=== PATIENT | male | born 1965 | race Caucasian/White ===

== ENCOUNTER 2019-04-09 07:55 | Emergency (ER) | payer SELFPAY ==
[2019-04-09 08:23] LABS: Absolute Lymphocytes (CBC) 0.9 K/uL (0.7-4.9); Absolute Monocytes 0.5 K/uL (0.1-1.3); Absolute Neutrophil 9.8 K/uL (1.8-8.0); Basophils % 0.2 % (0-1.3); Eosinophils % 0.1 % (0-4.4); Lymphocytes % 8.4 % (15.3-44.8); MPV 7.6 fL (7.6-11.3); Monocytes % 4.6 % (3.3-12.3); RBC Red Blood Cell Count 4.35 M/uL (4.33-5.43)
[2019-04-09 08:27] LABS: Protime INR 1.11
[2019-04-09] MEDS ORDERED: NA CHLORIDE 0.9% 1,000 ML ONE (08:29)
[2019-04-09 08:39] LABS: ALT/SGPT 32 U/L (12-78); AST/SGOT 40 U/L (15-37); Albumin 4.3 g/dL (3.4-5.0); Alkaline Phosphatase 85 U/L (45-117); BUN Blood Urea Nitrogen 21 mg/dL (7-18); Bicarbonate 25 mmol/L (21-32); Bilirubin Direct 0.1 mg/dL (0-0.2); Bilirubin Total 0.5 mg/dL (0.2-1.0); Glucose Level 118 mg/dL (74-106); Protein, Total 7.5 g/dL (6.4-8.2); Sodium Level 141 mmol/L (136-145)
[2019-04-09 08:47] LABS: Urine Blood 1+ (NEG); Urine Glucose NEGATIVE (NEG); Urine Protein NEGATIVE (NEG); Urine Specific Gravity 1.015 (1.005-1.030); Urine pH 5.5 (5.0-7.0)
[2019-04-09 08:57] LABS: Barbiturates NEGATIVE (NEGATIVE); Benzodiazepines NEGATIVE (NEGATIVE); Cocaine POSITIVE (NEGATIVE); METHAMPHETAM NEGATIVE (NEGATIVE); Methadone NEGATIVE (NEGATIVE); Opiates NEGATIVE (NEGATIVE); Phencyclidine NEGATIVE (NEGATIVE); THC Cannibis POSITIVE (NEGATIVE)
--- NOTE | 2019-04-09 09:09 | ER ---
Nurse's Notes [facility] Name: Ryan De Los Santos Jr Age: 53 yrs Sex: Male : 1965 Arrival Date: 04/09/2019 Time: 07:56 Bed 16 Private MD: Diagnosis: Abuse of other non-psychoactive substances;Cocaine abuse with cocaine-induced anxiety disorder Presentation: 04/09 07:56 Presenting complaint: EMS states: pt went on a funes last night, uses cocaine per pt sg report, pt stated feeling very anxious and like he may . EMS noted pinpoint pupils, administered Narcan 2 mg IV, pt became more alert per EMS. Transition of care: patient was not received from another setting of care. Onset of symptoms was April 09, 2019. Risk Assessment: Do you want to hurt yourself or someone else? Patient reports no desire to harm self or others. Initial Sepsis Screen: Does the patient meet any 2 criteria? No. Patient's initial sepsis screen is negative. Does the patient have a suspected source of infection? No. Patient's initial sepsis screen is negative. Care prior to arrival: Medication(s) given: zofran 4 mg, Narcan 2 mg IVP IV initiated. 20 GA, in the right antecubital area, Glucose check: 122. 07:56 Acuity: DEANNA 3 sg 07:56 Method Of Arrival: EMS: [facility] sg Historical: - Allergies: 07:59 No Known Allergies; sg - Home Meds: 07:59 Glimepiride Oral [Active]; lisinopril Oral [Active]; Paxil 40 mg Oral tab 1 tab once sg daily for Anxiety with Depression [Active]; - PMHx: 07:59 Anxiety; Hypertension; Diabetes - NIDDM; sg - Immunization history:: Adult Immunizations up to date. - Social history:: Smoking status: Patient/guardian denies using tobacco. - Ebola Screening: : Patient negative for fever greater than or equal to 101.5 degrees Fahrenheit, and additional compatible Ebola Virus Disease symptoms Patient denies exposure to infectious person Patient denies travel to an Ebola-affected area in the 21 days before illness onset No symptoms or risks identified at this time. Screenin:00 Abuse screen: Denies threats or abuse. Denies injuries from another. Nutritional sg screening: No deficits noted. Tuberculosis screening: No symptoms or risk factors identified. Never had TB. Fall Risk None identified. Assessment: 08:00 General: Appears in no apparent distress. well developed, well nourished, Behavior is sg calm, cooperative, appropriate for age. Neuro: Level of Consciousness is awake, alert, obeys commands, Oriented to person, place, time, situation, Speech is normal, Facial symmetry appears normal. Cardiovascular: Heart tones S1 S2 present Chest pain is denied. Respiratory: Airway is patent Respiratory effort is even, unlabored, Respiratory pattern is regular, symmetrical. GI: Abdomen is round non-distended, Parent/caregiver reports the patient having nausea. : No signs and/or symptoms were reported regarding the genitourinary system. EENT: No signs and/or symptoms were reported regarding the EENT system. Derm: Skin is pink, warm \T\ dry. Musculoskeletal: Circulation, motion, and sensation intact. Range of motion: intact in all extremities, Swelling absent. 09:04 Reassessment: Patient appears in no apparent distress at this time. Patient and/or sg family updated on plan of care and expected duration. Pain level reassessed. Patient is alert, oriented x 3, equal unlabored respirations, skin warm/dry/pink. 09:42 Reassessment: Called [facility], will have to wait for Taxi at this time. iw Vital Signs: 08:09 BP 135 / 90; Pulse 91; Resp 18; Temp 98.3; Pulse Ox 98% on R/A; Pain 3/10; sg 09:00 BP 130 / 87; Pulse 79; Resp 17; Pulse Ox 98% on R/A; Pain 3/10; sg ED Course: 07:56 Patient arrived in ED. sg 07:57 Vince Rosales MD is Attending Physician. kdr 07:58 Triage completed. sg 07:58 Tony Davis, RN is Primary Nurse. sg 07:58 Arm band placed on. sg 08:00 Patient has correct armband on for positive identification. Bed in low position. Call sg light in reach. hall monitor on. Pulse ox on. NIBP on. Warm blanket given. Head of bed elevated. 08:07 EKG done, by ED staff, reviewed by Vince Rosales MD. dh3 08:14 Initial lab(s) drawn, by nh, sent to lab. dh3 09:41 No provider procedures requiring assistance completed. IV discontinued, intact, iw bleeding controlled, No redness/swelling at site. Pressure dressing applied. Administered Medications: 08:19 Drug: NS 0.9% 1000 ml Route: IV; Rate: 1 bolus; Site: right antecubital; tr5 09:20 Follow up: Response: No adverse reaction; IV Status: Completed infusion sg Outcome: 09:07 Discharge ordered by . kdr 09:41 Discharged to home ambulatory, with family. iw 09:41 Condition: good 09:41 Discharge instructions given to patient, Instructed on discharge instructions, follow up and referral plans. safety practices, Demonstrated understanding of instructions, follow-up care. 09:44 Patient left the ED. Signatures: Tony Davis RN RN sg Vince Rosales MD MD kdr Williams, Irene RN RN Lindsey Toure [facility] Nato Madsen RN RN tr5 Corrections: (The following items were deleted from the chart) 09:03 08:59 BP 135 / 90; Pulse 79bpm; Resp 17bpm; Pulse Ox 98% RA; Pain 3/10; sg sg
--- NOTE | 2019-04-09 09:09 | EDPHYS ---
Physician Documentation [facility] Name: Ryan De Los Santos Jr Age: 53 yrs Sex: Male : 1965 Arrival Date: 04/09/2019 Time: 07:56 Bed 16 Private MD: ED Physician Vince Rosales HPI: 04/09 08:12 This 53 yrs old Male presents to ER via EMS with complaints of Drug Abuse. kdr 08:12 The patient states that he was at home last night and did "six lines" of cocaine. Now kdr he feel like he is going to . He states that his heart was fluttering but denies pain. States that he thought he was having a heart attack. He denies any other problem. States that this is the third time he has done cocaine over the last month or so. He has no other c/o and denies and other ingestion or substance abuse. EMS reports that his pupils were pin point and that the gave him Narcan. EMS reports condition improved after Narcan. Onset: The symptoms/episode began/occurred suddenly, last night. Severity of symptoms: At their worst the symptoms were moderate severe just prior to arrival, in the emergency department the symptoms have improved moderately. The patient has not experienced similar symptoms in the past. The patient has not recently seen a physician. Historical: - Allergies: 07:59 No Known Allergies; sg - Home Meds: 07:59 Glimepiride Oral [Active]; lisinopril Oral [Active]; Paxil 40 mg Oral tab 1 tab once sg daily for Anxiety with Depression [Active]; - PMHx: 07:59 Anxiety; Hypertension; Diabetes - NIDDM; sg - Immunization history:: Adult Immunizations up to date. - Social history:: Smoking status: Patient/guardian denies using tobacco. - Ebola Screening: : Patient negative for fever greater than or equal to 101.5 degrees Fahrenheit, and additional compatible Ebola Virus Disease symptoms Patient denies exposure to infectious person Patient denies travel to an Ebola-affected area in the 21 days before illness onset No symptoms or risks identified at this time. ROS: 08:12 Constitutional: Negative for fever, chills, and weight loss, Eyes: Negative for injury, kdr pain, redness, and discharge, ENT: Negative for injury, pain, and discharge, Neck: Negative for injury, pain, and swelling, Respiratory: Negative for shortness of breath, cough, wheezing, and pleuritic chest pain, Abdomen/GI: Negative for abdominal pain, nausea, vomiting, diarrhea, and constipation, Back: Negative for injury and pain, : Negative for injury, bleeding, discharge, and swelling, MS/Extremity: Negative for injury and deformity, Skin: Negative for injury, rash, and discoloration, Psych: Negative for depression, anxiety, suicide ideation, homicidal ideation, and hallucinations, Allergy/Immunology: Negative for hives, rash, and allergies, Endocrine: Negative for neck swelling, polydipsia, polyuria, polyphagia, and marked weight changes, Hematologic/Lymphatic: Negative for swollen nodes, abnormal bleeding, and unusual bruising. 08:12 Cardiovascular: Positive for palpitations, Negative for chest pain, edema, orthopnea. 08:12 Psych: Positive for anxiety, Negative for depression, drug dependence, alcohol dependence, auditory hallucinations, visual hallucinations, homicidal ideation, insomnia, suicide gesture, suicidal ideation, acute changes. Exam: 08:12 Constitutional: This is a well developed, well nourished patient who is awake, alert, kdr and in mild distress. Head/Face: Normocephalic, atraumatic. Eyes: Pupils equal round and reactive to light, extra-ocular motions intact. Lids and lashes normal. Conjunctiva and sclera are non-icteric and not injected. Cornea within normal limits. Periorbital areas with no swelling, redness, or edema. Neck: Trachea midline, no thyromegaly or masses palpated, and no cervical lymphadenopathy. Supple, full range of motion without nuchal rigidity, or vertebral point tenderness. No Meningismus. Chest/axilla: Normal chest wall appearance and motion. Nontender with no deformity. No lesions are appreciated. Cardiovascular: Regular rate and rhythm with a normal S1 and S2. No gallops, murmurs, or rubs. Normal PMI, no JVD. No pulse deficits. Respiratory: Lungs have equal breath sounds bilaterally, clear to auscultation and percussion. No rales, rhonchi or wheezes noted. No increased work of breathing, no retractions or nasal flaring. Abdomen/GI: Soft, non-tender, with normal bowel sounds. No distension or tympany. No guarding or rebound. No evidence of tenderness throughout. Back: No spinal tenderness. No costovertebral tenderness. Full range of motion. Skin: Warm, dry with normal turgor. Normal color with no rashes, no lesions, and no evidence of cellulitis. MS/ Extremity: Pulses equal, no cyanosis. Neurovascular intact. Full, normal range of motion. Neuro: Awake and alert, GCS 15, oriented to person, place, time, and situation. Cranial nerves II-XII grossly intact. Motor strength 5/5 in all extremities. Sensory grossly intact. Cerebellar exam normal. Normal gait. 08:12 Psych: Behavior/mood is pleasant, cooperative, anxious, Affect is flat, Oriented to person, place, time, Patient has no thoughts/intents to harm self or others. Judgement / Insight is normal. Memory is normal. Delusions/hallucinations are not present. Vital Signs: 08:09 BP 135 / 90; Pulse 91; Resp 18; Temp 98.3; Pulse Ox 98% on R/A; Pain 3/10; sg 09:00 BP 130 / 87; Pulse 79; Resp 17; Pulse Ox 98% on R/A; Pain 3/10; sg MDM: 09:07 Patient medically screened. [facility] 09:18 Data reviewed: vital signs, nurses notes, lab test result(s), EKG, radiologic studies. kdr Counseling: I had a detailed discussion with the patient and/or guardian regarding: the historical points, exam findings, and any diagnostic results supporting the discharge/admit diagnosis, lab results, radiology results, the need for outpatient follow up. 04/09 07:57 Order name: Acetaminophen; Complete Time: 09:04 [facility] 04/09 07:57 Order name: Basic Metabolic Panel; Complete Time: 09: [facility] 04/09 07:57 Order name: CBC with Diff; Complete Time: 09:04 [facility] 04/09 07:57 Order name: ETOH Level; Complete Time: 09:04 [facility] 04/09 07:57 Order name: Hepatic Function; Complete Time: : [facility] 04/09 07:57 Order name: PT-INR; Complete Time: 09: [facility] 04/09 07:57 Order name: Ptt, Activated; Complete Time: 09:04 [facility] 04/09 07:57 Order name: Salicylate; Complete Time: 09: [facility] 04/09 07:57 Order name: Urine Drug Screen; Complete Time: 09: [facility] 04/09 07:57 Order name: EKG; Complete Time: 07:58 [facility] 04/09 07:57 Order name: EKG - Nurse/Tech; Complete Time: 08:13 [facility] 04/09 07:57 Order name: IV Saline Lock; Complete Time: 08:13 [facility] 04/09 08:09 Order name: Urine Dipstick--Ancillary (enter results); Complete Time: 09:04 04/09 07:57 Order name: Labs collected and sent; Complete Time: 08:13 [facility] 04/09 07:57 Order name: Urine Dipstick-Ancillary (obtain specimen); Complete Time: 08: [facility] Administered Medications: 08:19 Drug: NS 0.9% 1000 ml Route: IV; Rate: 1 bolus; Site: right antecubital; tr5 09:20 Follow up: Response: No adverse reaction; IV Status: Completed infusion sg Disposition: 04/09/19 09:07 Discharged to Home. Impression: Abuse of other non-psychoactive substances, Cocaine abuse with cocaine-induced anxiety disorder. - Condition is Stable. - Discharge Instructions: Stimulant Use Disorder-Cocaine, Substance Use Disorder. - Work release form, Medication Reconciliation Form, Thank You Letter form. - Follow up: Private Physician; When: 2 - 3 days; Reason: If symptoms return, Further diagnostic work-up, Recheck today's complaints, Continuance of care, Re-evaluation by your physician. - Problem is new. - Symptoms have improved. Signatures: Dispatcher [employer] EDTony Liriano RN RN Vince Rosales MD MD [facility] Manjula Gannon RN RN iw Nato Madsen RN RN tr5 Corrections: (The following items were deleted from the chart) 09:44 09:07 04/09/2019 09:07 Discharged to Home. Impression: Abuse of other non-psychoactive iw substances; Cocaine abuse with cocaine-induced anxiety disorder. Condition is Stable. Forms are Medication Reconciliation Form, Thank You Letter, Antibiotic Education, Prescription Opioid Use. Follow up: Private Physician; When: 2 - 3 days; Reason: If symptoms return, Further diagnostic work-up, Recheck today's complaints, Continuance of care, Re-evaluation by your physician. Problem is new. Symptoms have improved. kdr
[2019-04-09 09:49] VITALS: TEMP 98.3; O2SAT 98
[2019-04-09 09:50] VITALS: BP 130/87
--- NOTE | 2019-04-10 07:55 | EKG ---
Test Date: 2019-04-09 Test Time: 08:07:12 Electrical Maintenance Technician: GURDEEP MEASUREMENT RESULTS: Intervals: Rate: 85 MI: 196 QRSD: 84 QT: 352 QTc: 418 [place]: P: 59 MI: 196 QRS: 56 T: 63 INTERPRETIVE STATEMENTS: Normal sinus rhythm Normal ECG No previous ECG available for comparison Electronically Signed On 04-10-19 07:53:51 CDT by Jaime Lassiter
== END 2019-04-09 09:44 | disposition home or self-care (01) ==
LOC: ER 07:55
DX: F14.180 Cocaine abuse with cocaine-induced anxiety disorder (principal); E11.9 Type 2 diabetes mellitus without complications; I10 Essential (primary) hypertension
CPT/HCPCS: 36415; 80048; 80076; 80307; 80320; 80329; 81003; 85025; 85610; 85730; 93005; 96360; 99284; J7030